=== PATIENT | male | born 1995 | race Caucasian/White ===

== ENCOUNTER 2019-04-01 16:51 | Emergency (ER) | payer MEDICAID ==
[~2019-04-01] VITALS: Ht 193 cm; Wt 114.0 kg
[~2019-04-01 16:51] MED LIST: NO HOME MEDS
[2019-04-01 18:28] VITALS: BP 138/81
[2019-04-01 18:51] LABS: CLARITY,URINE CLEAR (Clear); COLOR,URINE YELLOW (Yellow); GLUCOSE, URINE NEGATIVE (Neg); KETONES,URINE NEGATIVE (Neg); LEUKOCYTE ESTERASE ,URINE NEGATIVE (Neg); NITRITES, URINE NEGATIVE (Neg); OCCULT BLOOD,URINE NEGATIVE (Neg); PROTEIN,URINE NEGATIVE (Neg); UROBILINOGEN,URINE 0.2 E.U/dL (0.2-1.0)
[2019-04-01 18:56] LABS: UA COLLECTION TYPE NON-SPECIFIED
== END 2019-04-01 18:42 | disposition home or self-care (01) ==
LOC: ER 16:51
DX: N48.89 Other specified disorders of penis (principal); R10.31 Right lower quadrant pain; J45.909 Unspecified asthma, uncomplicated; Z90.89 Acquired absence of other organs; Z98.890 Other specified postprocedural states
CPT/HCPCS: 76870; 81003; 99284

== ENCOUNTER 2024-12-11 12:08 | Emergency (ER) | payer MEDICARE, MEDICAID ==
[~2024-12-11] VITALS: Ht 193 cm; Wt 127.1 kg
[2024-12-11 12:11] VITALS: BP 152/95; PULSE 98; RESP 16; TEMP 98.4; O2SAT 98
--- NOTE | 2024-12-11 15:38 | Physician Documentation ---
History of Present Illness ~ Chief Complaint: Leg Pain Stated Complaint: KNEE PAIN Time Seen by MD: 13:41 Primary Medical Doctor: DR HUDDLESTON Source: patient Mode of Arrival: POV, Ambulatory Exam Limitations: no limitations HPI 29-year-old male with chief complaint left leg pain that is localized to the back of his knee in his popliteal fossa and started spontaneously a few days ago. Pain is worse with walking. No precipitating injury or event. Reports strong family history of blood clots with his mother g on other relatives. No known family history of coagulopathies. No recent surgeries, travel, is not on any hormone replacement therapy, no skin color changes in his lower extremity, weakness of his knee, calf pain or groin pain. Tetanus witin 5 years: Yes Medication Reconciliation Allergies: Coded Allergies: No Known Allergies (Unverified , 12/11/24) Miscellaneous Medications Home Med List (No Home Medications), (Reported) Past Medical History Past Medical History: Asthma Past Surgical History: tonsillectomy, other Alcohol Use: None Drug Use: none Lives with: Other Lives In: Home Review of Systems All Other Systems at this time: Reviewed and Negative Physical Exam Vital Signs: Temperature: 98.4, Source: Temporal, Heart Rate: 98, Respiratory Rate: 16, BP: 152/95, Pulse Oximetry: 98, Weight: 127.100 Oxygen Flow Rate: 0 Physical Exam General Appearance: Alert, WD/WN. NAD. HEENT: NCAT, PERRL, EOMI. Neck: Supple, trachea midline. Cardiovascular: RRR. No m/r/g. No LE edema. Lungs: CTAB. Breathing unlabored MSK: Normal inspection of left knee joint no effusion or edema no erythema, visible bulge at popliteal fossa but this is not tender to palpation. Active range motion of knee joint is full, without pain. No calf ttp, Skin: Warm/dry, normal color Neurological: Alert and oriented x4, normal gait. Psychiatric: Affect congruent with mood. Progress Results/Orders Results/Orders Orders - ZHOU CHAUDHARY Vl Venous (12/11/24 14:39) Completed Orders - ZHOU CHAUDHARY Venous (12/11/24 14:39) Vital Signs 12/11/24 12/11/24 12:11 13:41 Temp 98.4 Pulse 98 Resp 16 B/P (MAP) 152/95 Pulse Ox 98 O2 Flow Rate 0 Medical Decision Making General Diff Dx:Considerations: Include: Abrasion, Contusion, Fracture, Hematoma, Laceration, Malunion, Neurovascular injury, Open fracture, Sprain, Ulcer, Other Additional Comment Due to family history of blood clots in the location of patient's pain I felt it was necessary to get an ultrasound to rule out DVT which was ruled out, exam findings consistent with Villanueva's cyst which ultrasound also supported Departure Time of Disposition: 16:43 Disposition: 01 HOME / SELF CARE / HOMELESS Impression: Primary Impression: Leg pain, left Additional Impression: Villanueva's cyst Qualified Codes: M71.22 - Synovial cyst of popliteal space [Villanueva], left knee Condition: Stable Discharge Instructions: Villanueva Cyst Additional Instructions: compression, ice for villanueva's cyst if does not resolve recommend imaging of knee joint to assess for cause of cyst u/s negative for DVT Referrals: NO PRIMARY CARE PROVIDER (PCP) Education Educated: Patient Educated regarding: diagnosis, treatment, need for follow up Signature Scribe Signature: x Attestation: ZHOU Johnson Dec 11, 2024 15:38
--- NOTE | 2024-12-11 16:11 | VASCULAR REPORT ---
CLINICAL HISTORY: Left lower extremity pain. COMPARISON: None TECHNIQUE: Compression evaluation and color doppler evaluation of the deep veins of the left lower extremity was performed. Evaluation for augmentation and flow characteristics with doppler pulse wave imaging was performed. Realtime grayscale and Doppler ultrasound images of the deep venous structures with spectral waveform analysis were obtained. FINDINGS: This examination demonstrates normal compression, augmentation, and phasic flow of the left lower extremity. No evidence for thrombus within the left common femoral, femoral, and popliteal veins. The calf veins demonstrated normal compression and color flow. In addition, the contralateral right common femoral vein is patent. Incidental note is made of a fluid collection in the left popliteal fossa measuring up to 2.6 cm in diameter, likely popliteal cyst, appears to have ruptured with fluid coursing into the calf region. IMPRESSION: 1. There is no evidence for DVT in the left lower extremity. 2. Fluid collection in the popliteal fossa, likely popliteal cyst with suspected rupture. Correlate with clinical findings. If clinically indicated, MRI may be helpful to further characterize.
== END 2024-12-11 16:22 | disposition home or self-care (01) ==
LOC: ER 12:08
DX: M71.22 Synovial cyst of popliteal space [Baker], left knee (principal); M79.605 Pain in left leg; J45.909 Unspecified asthma, uncomplicated; Z90.89 Acquired absence of other organs
CPT/HCPCS: 93971; 99284; A6446